=== PATIENT | male | born 1965 | race Caucasian/White ===

== ENCOUNTER 2024-08-26 08:43 | Emergency (ER) | payer BC, SELFPAY ==
[2024-08-26 08:50] VITALS: BP 121/93; PULSE 82; RESP 20; TEMP 36.7; O2SAT 98
--- OUTSIDE RECORDS SUMMARY | 2024-08-26 08:50 | XMS_ITS | Encounter Summary ---
Author Organization [facility] Address [address] [place] [address] Phone Care Team Providers Care Motor Boss Name Role Phone Avinash Otero BS Primary Care Provider [phone] Reason for Visit * Reason Onset Date Comments Clinical SX During Covid-19 Outbreak 03/01/2020 Encounter Details Date Type Department Care Team ([facility] st Contact Info) Description 03/01/2020 Telephone [facility] Pt Support and Access CTR Appointment Request [address] [place] [address] Identified, No Provider Clinical SX During Covid-19 Outbreak Social History Tobacco Use Types Packs/Day Years Used Date Smoking Tobacco: Never Smokeless Tobacco: Never Alcohol Use Standard Drinks/Week Comments Yes 0 (1 standard drink = 0.6 oz pur e alcohol) Sex and Gender Information Value Date Recorded Sex Assigned at Not on file Legal Sex Male 7:16 AM AGRONOMY INSTRUCTOR Gender Identity Male 11/06/2021 9:11 AM CDT Sexual Orientation Straight 11/06/2021 9: 11 AM CDT COVID-19 Exposure Response Date Recorded In the last month, have you been in contact with someone who was confirmed or suspected to have Coronavirus / COVID-19? Unable to assess 03/01/2020 2:06 PM AGRONOMY INSTRUCTOR documented as of this encounter Miscellaneous Notes * Telephone Encounter - Eunice Christine - 03/01/2020 12:56 PM CST Patient called to request COVID testing. COVID Related Symptoms: sore throat, runny nose Confirmed Exposure: yes If yes, date of exposure: 02/24/2020 and patient advised to wait at least 5 days from exposure datefor testing. Pt screened through [facility] COVID guidelines and directed to report to testing site. Patient aware thaton-site clinical staff may pre-screen. NOMY INSTRUCTOR documented in this encounter Plan of Treatment Not on file documented as of this encounter Visit Diagnoses Not on filedocumented in this encounter Additional Health Concerns Infection Onset Date Last Indicated Resolved Time Suspected COVID-03/01/2020 03/01/2020 0 12:21 AM AGRONOMY INSTRUCTOR Assessment Noted Time A Hypertension Plan of Care has been documented for the patient 01/27/2020 10:54 AM CDT documented as of this encounter Care Teams Motor Boss Relationship Specialty Start Date End Date Avinash Otero MB BS [address] [place] [address] PCP - General Adult Medicine 09/29/23 documented as of this encounter
--- OUTSIDE RECORDS SUMMARY | 2024-08-26 08:51 | XMS_ITS | Encounter Summary ---
Author Organization [facility] Address [address] [place] [address] Phone Care Team Providers Care Facility Manager Histology Name Role Phone Avinash Otero Primary Care Provider [phone] Encounter Details Date Type Department Care Team (Late st Contact Info) Description 06/14/2016 Telephone Adult Medicine [place] [address] [place], [place] [id number] Madelyn Howell MD Social History Tobacco Use Types Packs/Day Years Used Date Smoking Tobacco: Never Smokeless Tobacco: Never Alcohol Use Standard Drinks/Week Comments Yes 0 (1 standard drink = 0.6 oz pur e alcohol) Sex and Gender Information Value Date Recorded Sex Assigned at Not on file Legal Sex Male 7:16 AM DIABETES EDUCATION COORDINATOR Gender Identity Male 11/06/2021 9:11 AM CDT Sexual Orientation Straight 11/06/2021 9: 11 AM CDT documented as of this encounter Plan of Treatment Not on file documented as of this encounter Visit Diagnoses Not on filedocumented in this encounter Additional Health Concerns Infection Onset Date Last Indicated Resolved Time Suspected COVID-19 03/01/2020 03/01/2020 0 12:21 AM DIABETES EDUCATION COORDINATOR Assessment Noted Time A Hypertension Plan of Care has been documented for the patient 05/11/2015 3:48 PM DIABETES EDUCATION COORDINATOR documented as of this encounter Care Teams Facility Manager Histology Relationship Specialty Start Date End Date Avinash Otero MB BS [address] [place], [place] [address] PCP - General Adult Medicine 09/29/23 documented as of this encounter
--- OUTSIDE RECORDS SUMMARY | 2024-08-26 08:51 | XMS_ITS | Encounter Summary ---
Author Organization [facility] Address [address] [place] [address] Phone Care Team Providers Care Hand Stonecutter Name Role Phone Avinash Otero Primary Care Provider [phone] Encounter Details Date Type Department Care Team (Late st Contact Info) Description 10/25/2022 Transcribe Orders [facility] Pulmonology [address] [address] Arnold Lopez MD [address] [place] [address] Sleep apnea, unspecified type (Primary Dx) Social History Tobacco Use Types Packs/Day Years Used Date Smoking Tobacco: Never Smokeless Tobacco: Never Alcohol Use Standard Drinks/Week Comments Yes 0 (1 standard drink = 0.6 oz pur e alcohol) Sex and Gender Information Value Date Recorded Sex Assigned at Not on file Legal Sex Male 7:16 AM COMPANY MINER BLASTING Gender Identity Male 11/06/2021 9:11 AM CDT Sexual Orientation Straight 11/06/2021 9: 11 AM CDT documented as of this encounter Plan of Treatment Not on file documented as of this encounter Visit Diagnoses Diagnosis Sleep apnea, unspecified type- Primary documented in this encounter Additional Health Concerns Assessment Noted Time A Hypertension Plan of Care has been documented for the patient 12/23/2021 9:34 AM CDT documented as of this encounter Care Teams Hand Stonecutter Relationship Specialty Start Date End Date Avinash Otero MB BS [address] [place] [address] PCP - General Adult Medicine 09/29/23 documented as of this encounter
--- OUTSIDE RECORDS SUMMARY | 2024-08-26 08:51 | XMS_ITS | Encounter Summary ---
Author Organization [facility] Address [address] [place] [address] Phone Care Team Providers Care Vice President Underwriting Name Role Phone Avinash Otero Primary Care Provider [phone] Reason for Visit * Reason Onset Date Comments !Other 01/14/2011 pt calling to ge t lab results Encounter Details Date Type Department Care Team ([facility] Contact Info) Description 01/14/2011 Telephone Adult Medicine [place] [address] [place] [address] Sofia Sanchez MD [address] [place] [address] !Other (pt calling to get lab results ) Social History Tobacco Use Types Packs/Day Years Used Date Smoking Tobacco: Never Smokeless Tobacco: Never Alcohol Use Standard Drinks/Week Comments Yes 0 (1 standard drink = 0.6 oz pur e alcohol) Sex and Gender Information Value Date Recorded Sex Assigned at Not on file Legal Sex Male 7:16 AM PRODUCTION COST ESTIMATOR Gender Identity Male 11/06/2021 9:11 AM CDT Sexual Orientation Straight 11/06/2021 9: 11 AM CDT documented as of this encounter Miscellaneous Notes * Telephone Encounter - Ariadna Adams RN - 01/17/2011 2:15 PM CDT Phoned pt to inform him of normal lab results per Dr Naik message from 01/16/11. Pt requested copy of lab work from 01/11/11, mailed to pt. Pt voices no other questions/concerns at this time. * Telephone Encounter - Willis Naik MD - 01/16/2011 3:59 PM CDT I have reviewed all the labs that's we ordered on 01/11. All the labs including his blood counts, lipids, Liver and kidney functions and iron studies are all with in normal limits. Patient may be given a copy of his lab results if he needs or asks for them. * Telephone Encounter - Ariadna Adams RN - 01/14/2011 3:32 PM CDT Patient calling in for results of 01/11/11 lab results. Forwarding message to Dr Naik to review 01/11/11 lab work so that Res Cl RN can return call to patient with results. Thanks. documented in this encounter Plan of Treatment Not on file documented as of this encounter Visit Diagnoses Not on filedocumented in this encounter Additional Health Concerns Infection Onset Date Last Indicated Resolved Time Suspected COVID-19 03/01/2020 03/01/2020 0 12:21 AM PRODUCTION COST ESTIMATOR documented as of this encounter Care Teams Vice President Underwriting Relationship Specialty Start Date End Date Avinash Otreo MB BS [address] [place] [address] PCP - General Adult Medicine 09/29/23 documented as of this encounter
--- OUTSIDE RECORDS SUMMARY | 2024-08-26 08:51 | XMS_ITS | Encounter Summary ---
Author Organization [facility] Address [address] [place] [address] Phone Care Team Providers Care Ring Attacher Name Role Phone Avinash Otero BS Primary Care Provider [phone] Reason for Visit * Reason Onset Date Comments Results 05/13/2024 Encounter Details Date Type Department Care Team ([facility] st Contact Info) Description 05/13/2024 Telephone [facility] Pulmonology Main [address] [place] [id number] Arnold Lopez MD [address] [place] [address] Results Social History Tobacco Use Types Packs/Day Years Used Date Smoking Tobacco: Never Smokeless Tobacco: Never Alcohol Use Standard Drinks/Week Comments Yes 0 (1 standard drink = 0.6 oz pur e alcohol) Sex and Gender Information Value Date Recorded Sex Assigned at Not on file Legal Sex Male 7:16 AM DEEP SUBMERGENCE VEHICLE OPERATOR Gender Identity Male 11/06/2021 9:11 AM CDT Sexual Orientation Straight 11/06/2021 9: 11 AM CDT documented as of this encounter Miscellaneous Notes * Telephone Encounter - Cira Florence RN - 05/13/2024 1:46 PM CST ----- Message from Arnold Lopez sent at 05/13/2024 1:41 PM DEEP SUBMERGENCE VEHICLE OPERATOR ----- No suspicious lung nodules seen. SUBMERGENCE VEHICLE OPERATOR documented in this encounter Plan of Treatment Not on file documented as of this encounter Visit Diagnoses Not on filedocumented in this encounter Additional Health Concerns Assessment Noted Time A Hypertension Plan of Care has been documented for the patient 12/23/2021 9:34 AM CDT documented as of this encounter Care Teams Ring Attacher Relationship Specialty Start Date End Date Avinash Otero MB BS [address] [place] [address] PCP - General Adult Medicine 09/29/23 documented as of this encounter
--- OUTSIDE RECORDS SUMMARY | 2024-08-26 08:51 | XMS_ITS | Encounter Summary ---
Author Organization [employer] [facility] Address [address] [place] [address] Phone Care Team Providers Care Patient Service Representative Name Role Phone Avinash Otero Primary Care Provider [phone] Encounter Details Date Type Department Care Team (Late st Contact Info) Description 02/21/2011 Patient Related Communication Adult Medicine on [place] [address] [place], [place] [id number] Darren Hogan MD Social History Tobacco Use Types Packs/Day Years Used Date Smoking Tobacco: Never Smokeless Tobacco: Never Alcohol Use Standard Drinks/Week Comments Yes 0 (1 standard drink = 0.6 oz pur e alcohol) Sex and Gender Information Value Date Recorded Sex Assigned at Not on file Legal Sex Male 7:16 AM SENIOR TELECOMMUNICATIONS ENGINEER Gender Identity Male 11/06/2021 9:11 AM CDT Sexual Orientation Straight 11/06/2021 9: 11 AM CDT documented as of this encounter Plan of Treatment Not on file documented as of this encounter Visit Diagnoses Not on filedocumented in this encounter Additional Health Concerns Infection Onset Date Last Indicated Resolved Time Suspected COVID-19 03/01/2020 03/01/2020 0 12:21 AM SENIOR TELECOMMUNICATIONS ENGINEER documented as of this encounter Care Teams Patient Service Representative Relationship Specialty Start Date End Date Avinash Otero MB BS [address] [place], [place] [address] PCP - General Adult Medicine 09/29/23 documented as of this encounter
--- OUTSIDE RECORDS SUMMARY | 2024-08-26 08:51 | XMS_ITS | Encounter Summary ---
Author Organization [facility] Address [address] [place] [address] Phone Care Team Providers Care Shelter Advocate Name Role Phone Avinash Otero BS Primary Care Provider [phone] Reason for Visit * Reason Onset Date Comments Appointment Request 04/04/2019 Encounter Details Date Type Department Care Team ([facility] Contact Info) Description 04/04/2019 Telephone Ophthalmology [facility] [address] [place] [address] Surya Rosales MD [address] [place], [place] [id number] Appointment Request Social History Tobacco Use Types Packs/Day Years Used Date Smoking Tobacco: Never Smokeless Tobacco: Never Alcohol Use Standard Drinks/Week Comments Yes 0 (1 standard drink = 0.6 oz pur e alcohol) Sex and Gender Information Value Date Recorded Sex Assigned at Not on file Legal Sex Male 7:16 AM ROLL CAPPER Gender Identity Male 11/06/2021 9:11 AM CDT Sexual Orientation Straight 11/06/2021 9: 11 AM CDT documented as of this encounter Miscellaneous Notes * Telephone Encounter - Erica Christopher RN - 04/04/2019 10:58 AM CST Schedule next available, ok to use one day post op CAPPER * Telephone Encounter - Paola Shields - 04/04/2019 10:35 AM CST Return for BOV in 3-4 weeks. Please advise where to fit patient in on schedule. No times available for 3 to 4 weeks. CAPPER documented in this encounter Plan of Treatment Not on file documented as of this encounter Visit Diagnoses Not on filedocumented in this encounter Additional Health Concerns Infection Onset Date Last Indicated Resolved Time Suspected COVID-19 03/01/2020 03/01/2020 0 12:21 AM ROLL CAPPER Assessment Noted Time A Hypertension Plan of Care has been documented for the patient 01/08/2019 3:17 PM CDT documented as of this encounter Care Teams Shelter Advocate Relationship Specialty Start Date End Date Avinash Otero MB BS [address] [place] [address] PCP - General Adult Medicine 09/29/23 documented as of this encounter
--- OUTSIDE RECORDS SUMMARY | 2024-08-26 08:51 | XMS_ITS | Encounter Summary ---
Author Organization [facility] Address [address] [place] [address] Phone Care Team Providers Care Shopper'S Aide Name Role Phone Avinash Otero Primary Care Provider [phone] Encounter Details Date Type Department Care Team (Late st Contact Info) Description 02/23/2011 Telephone Adult Medicine [place] [address] [place] [address] Sofia Sanchez MD [address] [place] [address] Social History Tobacco Use Types Packs/Day Years Used Date Smoking Tobacco: Never Smokeless Tobacco: Never Alcohol Use Standard Drinks/Week Comments Yes 0 (1 standard drink = 0.6 oz pur e alcohol) Sex and Gender Information Value Date Recorded Sex Assigned at Not on file Legal Sex Male 7:16 AM REPORTING MANAGER Gender Identity Male 11/06/2021 9:11 AM CDT Sexual Orientation Straight 11/06/2021 9: 11 AM CDT documented as of this encounter Miscellaneous Notes * Telephone Encounter - Veronica Alejandro RN - 03/02/2011 10:28 AM CST Called pt - informed of the below recommendation - pt states he is aware that it is recommended to get a flu vaccine, but he has not gotten one in the past and does not intend to get one this year. To Dr Daniel JOHANSEN. RTING MANAGER * Telephone Encounter - Tory Aponte RN - 02/23/2011 2:48 PM CST Left message for pt to return call to our office. RTING MANAGER * Telephone Encounter - Sofia Sanchez MD - 02/23/2011 10:43 AM CST Please call pt regarding office visit done on 02/21. He left office a little early before I staffedwith Dr Hogan. The only thing I wanted to add that day was his flu shot, did he got for the season? SB RTING MANAGER documented in this encounter Plan of Treatment Not on file documented as of this encounter Visit Diagnoses Not on filedocumented in this encounter Additional Health Concerns Infection Onset Date Last Indicated Resolved Time Suspected COVID-19 03/01/2020 03/01/2020 0 12:21 AM REPORTING MANAGER documented as of this encounter Care Teams Shopper'S Aide Relationship Specialty Start Date End Date Avinash Otero MB BS [address] [place] [address] PCP - General Adult Medicine 09/29/23 documented as of this encounter
--- OUTSIDE RECORDS SUMMARY | 2024-08-26 08:51 | XMS_ITS | Encounter Summary ---
Author Organization [facility] Address [address] [place] [address] Phone Care Team Providers Care Lab Clerk Name Role Phone Avinash Otero BS Primary Care Provider [phone] Reason for Visit * Reason Onset Date Comments Appointment Request 09/17/2012 pt requestin g sooner appt (sched for 09/24) Encounter Details Date Type Department Care Team ([facility] st Contact Info) Description 09/17/2012 Telephone Hand Surgery on [facility] [address] [place], [place] [id number] Art Padilla MD [address] [place], [place] [id number] Appointment Request (pt requesting sooner appt (sched for 09/24)) Social History Tobacco Use Types Packs/Day Years Used Date Smoking Tobacco: Never Smokeless Tobacco: Never Alcohol Use Standard Drinks/Week Comments Yes 0 (1 standard drink = 0.6 oz pur e alcohol) Sex and Gender Information Value Date Recorded Sex Assigned at Not on file Legal Sex Male 7:16 AM TATTOO IDENTIFIER Gender Identity Male 11/06/2021 9:11 AM CDT Sexual Orientation Straight 11/06/2021 9: 11 AM CDT documented as of this encounter Miscellaneous Notes * Telephone Encounter - Lima Flores - 09/17/2012 1:02 PM CDT Liz Winters calling from Dr. Otero's office regarding patient's request to be seen sooner than 09/24/[address] Art Padilla. Please contact patient directly to schedule at [phone]. documented in this encounter Plan of Treatment Not on file documented as of this encounter Visit Diagnoses Not on filedocumented in this encounter Additional Health Concerns Infection Onset Date Last Indicated Resolved Time Suspected COVID-19 03/01/2020 03/01/2020 0 12:21 AM TATTOO IDENTIFIER documented as of this encounter Care Teams Lab Clerk Relationship Specialty Start Date End Date Avinash Otero MB BS [address] [place] [address] PCP - General Adult Medicine 09/29/23 documented as of this encounter
--- OUTSIDE RECORDS SUMMARY | 2024-08-26 08:51 | XMS_ITS | Encounter Summary ---
Author Organization [facility] Address [address] [place] [address] Phone Care Team Providers Care Oil Rig Roughneck Name Role Phone Avinash Otero BS Primary Care Provider [phone] Reason for Visit * Reason Onset Date Comments Appointment Request 04/16/2012 Encounter Details Date Type Department Care Team ([facility] st Contact Info) Description 04/16/2012 Telephone [facility] 2nd Floor Cardiology [address] [place] [address] Wyatt Monge MD Appointment Request Social History Tobacco Use Types Packs/Day Years Used Date Smoking Tobacco: Never Smokeless Tobacco: Never Alcohol Use Standard Drinks/Week Comments Yes 0 (1 standard drink = 0.6 oz pur e alcohol) Sex and Gender Information Value Date Recorded Sex Assigned at Not on file Legal Sex Male 7:16 AM RESEARCH DIRECTOR Gender Identity Male 11/06/2021 9:11 AM CDT Sexual Orientation Straight 11/06/2021 9: 11 AM CDT documented as of this encounter Miscellaneous Notes * Telephone Encounter - Lianna Martines - 04/17/2012 9:42 AM CST Pt called back and states he will be following up with another provider. Does not need appointment at this time. ARCH DIRECTOR * Telephone Encounter - Jennifer Ramirez - 04/17/2012 8:43 AM CST Pt called back to confirm he was in his car and will have to call back. If he needs to change the appointment look for a RH in that time frame. ARCH DIRECTOR * Telephone Encounter - Jennifer Ramirez - 04/17/2012 8:05 AM CST Left msg to call and confirm appointment in hyperspace. ARCH DIRECTOR * Telephone Encounter - Cammy Parsons - 04/16/2012 3:35 PM CST Type of appointment Hospital follow up What is the patient's discharge diagnosis? chest pain, atrial fib Full name of provider to make appointment with: cardiology at [facility] - Dr. Ramos Note: Include first and last names When does appointment need to be? 1 to 2 weeks Please advise ARCH DIRECTOR documented in this encounter Plan of Treatment Not on file documented as of this encounter Visit Diagnoses Not on filedocumented in this encounter Additional Health Concerns Infection Onset Date Last Indicated Resolved Time Suspected COVID-19 03/01/2020 03/01/2020 0 12:21 AM RESEARCH DIRECTOR documented as of this encounter Care Teams Oil Rig Roughneck Relationship Specialty Start Date End Date Avinash Otero MB BS [address] [place] [address] PCP - General Adult Medicine 09/29/23 documented as of this encounter
--- OUTSIDE RECORDS SUMMARY | 2024-08-26 08:51 | XMS_ITS | Encounter Summary ---
Author Organization [facility] Address [address] [place] [id number] Phone Care Team Providers Care Whitewater Rafting Guide Name Role Phone Avinash Otero Primary Care Provider [phone] Reason for Visit * Reason Onset Date Comments Wrist Trauma 10/05/2015 ED/ [place], Right wrist injury after fall backwards while wearing a paragliding backpack, 10/02/15 Encounter Details Date Type Department Care Team (Latest Contact Info) Description 10/05/2015 Patient Related Communication Hand Surgery on [address] [place], [place] [id number] Identified, No Provider Wrist Trauma (ED/ [place], Right wrist injury after fall backwards while wearing a paragliding backpack, 10/02/15) Social History Tobacco Use Types Packs/Day Years Used Date Smoking Tobacco: Never Smokeless Tobacco: Never Alcohol Use Standard Drinks/Week Comments Yes 0 (1 standard drink = 0.6 oz pur e alcohol) Sex and Gender Information Value Date Recorded Sex Assigned at Not on file 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 Informed patient that our providers recommend that with his level of activity and age, surgery would most likely be indicated. This would be determined after examination and discussion with the provider. Explained that our providers like to repair these types of injuries within two weeks of the fracture. Patient verbalized understanding. Patient asked if he returns 16 days post injury if this will have a big difference. Explained thatthe longer he waits to be examined the higher the risk of not-optimal outcomes. Patient verbalized understanding. Patient states that he is going to an orthopedic surgeon in [place] for a second opinion, and would like the [facility] provider to speak to our providers here in the office. Explained that our providers have very busy clinic schedules today, so their access is very limited. Patient verbalized understanding. Patient asked that if the doctor in [place] recommends surgery, can the patient call the office and schedule surgery without being seen in the office. Explained that the patient would need to have an appointment with a provider before surgery can be scheduled. Patient also asked if his appointmentand surgery could be on the same day. Informed patient that his surgery would most likely be the same week as his appointment, but surgeries are not usually scheduled on the same day as appointments unless they are emergencies. Explained that since his injury is a few days old, his surgery is not considered an emergency. Patient verbalized understanding. Patient will call the office back after his second opinion with the orthopedist in [facility] if he wishes to have an appointment scheduled. * Marika Coffey RN - 10/05/2015 2:22 PM CDT Attempted to contact patient. [facility] for patient to return call to office. Caller and office identified. Call back number provided. Review below information with MACIEL Mabry. Unfortunately, without examination in the need for surgery cannot be determined at this time. Ideally, our surgeons like to repair fractures within 2 weeksof the injury. The patient should be advised to return from [facility] before October 18 if he wishes to proceed with surgery. The need for surgery will be determined at an appointment with the patient. Surgery would most likely be recommended due to patient's age and activity level. It is ultimately thepatient's decision whether or not he returns to have surgery. * Marika Coffey RN - 10/05/2015 10:24 AM CDT Returned call to patient to give provider's recommendation below. Patient states that he is passed the window of leaving [facility] tonight, and he would like to know if it is truly necessary that he leave [facility] to be seen this week. Patient would like to know if his surgery will be performed this week,and if not is it truly necessary to be seen this week. If the surgery will not be until next week, the patient would like to wait until next week to be seen. Patient also questions what the implications would be if he waited to come in for an appointment until the end of his trip. Patient is set toreturn from [facility] on October 17. Patient also stated that he would like his information review with the surgeon who would be performing the surgery. Informed patient that the provider who reviewed his information works very closely with the surgeon in surgery and in the clinic. Explained to patient that ultimately it is up to him, when he returns from [facility] to be seen. Patient verbalized understanding but would like this information reviewed with the providers, and be called back. Informed patient that this information will be review with the provider this afternoon. Patient verbalized understanding. Patient's phone number is [phone]. 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
--- OUTSIDE RECORDS SUMMARY | 2024-08-26 08:51 | XMS_ITS | Encounter Summary ---
Author Organization [facility] Address [address] [place] [address] Phone Care Team Providers Care Line Service Person Name Role Phone Avinash Otero BS Primary Care Provider [phone] Reason for Visit * Reason Onset Date Comments Results 08/28/2014 Encounter Details Date Type Department Care Team ([facility] st Contact Info) Description 08/28/2014 Telephone Family Medicine on [address] [place] [address] Cleveland Joseph MD [address] [place] [address] Results Social History Tobacco Use Types Packs/Day Years Used Date Smoking Tobacco: Never Smokeless Tobacco: Never Alcohol Use Standard Drinks/Week Comments Yes 0 (1 standard drink = 0.6 oz pur e alcohol) Sex and Gender Information Value Date Recorded Sex Assigned at Not on file 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 Given results and verbalized understanding. Will follow up with primary physician. * Telephone Encounter - Lisa Byers RN - 08/28/2014 7:55 PM CDT Left message for patient to return call. * Telephone Encounter - Shelbi Tavares RN - 08/28/2014 3:28 PM CDT ----- Message from Cleveland Magaña MD sent at 08/28/2014 2:07 PM CDT ----- Labs c/w flare of gout. rec pt f/u w/pcp for mx options. 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
--- OUTSIDE RECORDS SUMMARY | 2024-08-26 08:51 | XMS_ITS | Encounter Summary ---
Author Organization [facility] Address [address] [place] [address] Phone Care Team Providers Care Striker Out Name Role Phone Avinash Otero Primary Care Provider [phone] Encounter Details Date Type Department Care Team (Late st Contact Info) Description 09/25/2023 Scanned Document Non [facility] Referring Docs Provider, Outside Social History Tobacco Use Types Packs/Day Years Used Date Smoking Tobacco: Never Smokeless Tobacco: Never Alcohol Use Standard Drinks/Week Comments Yes 0 (1 standard drink = 0.6 oz pur e alcohol) Sex and Gender Information Value Date Recorded Sex Assigned at Not on file 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
--- OUTSIDE RECORDS SUMMARY | 2024-08-26 08:51 | XMS_ITS | Encounter Summary ---
Author Organization [facility] Address [address] [place] [address] Phone Care Team Providers Care Job Foreman Name Role Phone Avinash Otero BS Primary Care Provider [phone] Reason for Visit * Reason Onset Date Comments !Other 10/17/2017 Going to ED Encounter Details Date Type Department Care Team (Late st Contact Info) Description 10/17/2017 Telephone [facility] Cardiology [address] [place] [address] Sharad Garcia MD [address] [place], [place] [address] !Other (Going to ED) Social History Tobacco Use Types Packs/Day Years Used Date Smoking Tobacco: Never Smokeless Tobacco: Never Alcohol Use Standard Drinks/Week Comments Yes 0 (1 standard drink = 0.6 oz pur e alcohol) Sex and Gender Information Value Date Recorded Sex Assigned at Not on file 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 documented in this encounter Plan of Treatment Not on file documented as of this encounter Visit Diagnoses Not on filedocumented in this encounter Additional Health Concerns Infection Onset Date Last Indicated Resolved Time Suspected COVID-19 03/01/2020 03/01/2020 0 12:21 AM NUCLEAR CONTROL OPERATOR Assessment Noted Time A Hypertension Plan of Care has been documented for the patient 06/07/2017 1:36 PM NUCLEAR CONTROL OPERATOR documented as of this encounter Care Teams Job Foreman Relationship Specialty Start Date End Date Avinash Otero MB BS [address] [place] [address] PCP - General Adult Medicine 09/29/23 documented as of this encounter
--- OUTSIDE RECORDS SUMMARY | 2024-08-26 08:51 | XMS_ITS | Encounter Summary ---
Author Organization [facility] Address [address] [place] [address] Phone Care Team Providers Care Manager Switch Name Role Phone Avinash Otero Primary Care Provider [phone] Encounter Details Date Type Department Care Team (Latest Contact Info) Description 03/15/2013 Transcribe Orders [facility] Cardiology [address] [place] [address] Wyatt Monge MD Atrial fibrillation (Primary Dx) Social History Tobacco Use Types Packs/Day Years Used Date Smoking Tobacco: Never Smokeless Tobacco: Never Alcohol Use Standard Drinks/Week Comments Yes 0 (1 standard drink = 0.6 oz pur e alcohol) Sex and Gender Information Value Date Recorded Sex Assigned at Not on file 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 Gender Identity Male 11/06/2021 9:11 AM CDT Sexual Orientation Straight 11/06/2021 9: 11 AM CDT documented as of this encounter Plan of Treatment Not on file documented as of this encounter Visit Diagnoses Diagnosis Atrial fibrillation ([facility])- Primary Atrial fibrillation documented in this encounter Additional Health Concerns Infection Onset Date Last Indicated Resolved Time Suspected COVID-19 03/01/2020 03/01/2020 0 12:21 AM DOUBLE END TENONER SETTER documented as of this encounter Care Teams Manager Switch Relationship Specialty Start Date End Date Avinash Otero MB BS [address] [place], [place] [id number] PCP - General Adult Medicine 09/29/23 documented as of this encounter
--- OUTSIDE RECORDS SUMMARY | 2024-08-26 08:51 | XMS_ITS | Encounter Summary ---
Author Organization [facility] Address [address] [place] [address] Phone Care Team Providers Care Carbon Paste Mixer Operator Name Role Phone Avinash Otero Primary Care Provider [phone] Encounter Details Date Type Department Care Team (Late st Contact Info) Description 02/03/2016 Orders Only Adult Medicine [facility] [address] [place], [place] [address] Branden Espinal MD Social History Tobacco Use Types Packs/Day Years Used Date Smoking Tobacco: Never Smokeless Tobacco: Never Alcohol Use Standard Drinks/Week Comments Yes 0 (1 standard drink = 0.6 oz pur e alcohol) Sex and Gender Information Value Date Recorded Sex Assigned at Not on file Legal 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 Gender Identity Male 11/06/2021 9:11 AM CDT Sexual Orientation Straight 11/06/2021 9: 11 AM CDT documented as of this encounter Plan of Treatment Not on file documented as of this encounter Visit Diagnoses Not on filedocumented in this encounter Additional Health Concerns Infection Onset Date Last Indicated Resolved Time Suspected COVID-19 03/01/2020 03/01/2020 0 12:21 AM CHIEF LOCK OPERATOR Assessment Noted Time A Hypertension Plan of Care has been documented for the patient 05/11/2015 3:48 PM CHIEF LOCK OPERATOR documented as of this encounter Care Teams Carbon Paste Mixer Operator Relationship Specialty Start Date End Date Avinash Otero MB BS [address] [place], [place] [address] PCP - General Adult Medicine 09/29/23 documented as of this encounter
--- OUTSIDE RECORDS SUMMARY | 2024-08-26 08:51 | XMS_ITS | Clinical Summary ---
Author Organization [facility] Address [address] [place] [phone] Phone Care Team Providers Care Zoogler Name Role Phone Avinash Otero BS Primary Care Provider [phone] Allergies No known active allergies Medications indomethacin 25 mg capsuleIndication s:gout Take 1 capsule (25 mg total) by mouth every day as needed (pain) 30 capsule 2 Active atenoloL (TENORMIN) 25 mg tabletIndications :Paroxysmal atrial fibrillation (CMS-HCC) Take 0.5 tablets (12.5 mg total) by mouth every day 45 tablet 3 2 Active neomycin-polymyxi n-dexamethasone (MAXITROL) ophthalmic ointmentIndicatio ns:Cyst of right upper eyelid Use ointment around right upper eyelid, 2-3 times daily for 1 week 3.5 g 4 Active Active Problems Problem Noted Date Diagnosed Date Cyst of right upper eyelid 02/29/2024 Assessment & Plan (02/29/2024 10:49 AM BABBITT SPINNER): The nature and etiology of the lesion discussed with patient. Will plan for removal in minors today. Risk, benefit and alternatives discussed with patient, including but not limited to pain, infection, bleeding, scarring, need for repeat surgery, damage to vision, etc. Pt understands and would like excision. Please see procedure note for further details. JIAN (obstructive sleep apnea) 05/08/2023 Family history of colon cancer in mother 016 Closed fracture distal radiu s and ulna, right, initial encounter 10/05/2015 Triquetral chip fracture 09/19/2012 Reactive airway disease 06/10/2012 Elevated troponin 04/16/2012 Hypopotassemia 04/16/2012 Permanent atrial fibrillation 01/11/2011 Alcohol abuse 01/11/2011 Resolved Problems Problem Noted Date Diagnosed Date Resolved Date Cyst of right lower eyelid 04/04/2019 1 04/30/2023 Assessment & Plan (05/14/2019 3:38 PM BABBITT SPINNER): Sebaceous cyst of the right lower eyelid s/p excision and well healed now. Pt now with small cyst of the right upper eyelid, not bothered by it. Will monitor for now. -f/u with PRN -routine f/u with optom. Assessment & Plan (04/04/2019 10:09 AM BABBITT SPINNER): The nature and etiology of the sebaceous cyst discussed with patient. Will plan for removal in minors today. Risk, benefit and alternatives discussed with patient, including but not limited to pain, infection, bleeding, scarring, need for repeat surgery, damage to vision, etc. Pt understands and would like excision. Please see procedure note for further details. Encounter for preventive health examination 01/08/2019 08/07/2019 Cellulitis of right lower extremity 09/26/2016 06/07/2017 Precordial pain 04/16/2012 02/03/2016 Encounters Date Type Department Care Team Description 06/13/2024 6:45 AM BABBITT SPINNER Lab Only [facility] [place] [address] [place] [address] Otoniel Nunez MD Permanent atrial fibrillation 06/13/2024 Travel from Last 3 Months Immunizations Immunization Administration Dates Next Due Hepatitis A - Adult 11/03/2014 SARS-CoV-2 (Pfizer Monovalent COVID-19) 06/06/19 21,05/16/2020 T-dap (BOOSTRIX) 08/08/2012 Rmguldm-Phatpa-Dq 11/03/2014 Family History Medical History Relation Name Comments Alcohol/Drug Brother 1 Mat Half Heart Brother 2 Afibdx 40s Cancer Maternal Aunt 1 Late 60s primary bone ?dx? Heart Maternal Aunt 1 Late 60s Afib ? Heart Maternal Cousin 70s permanent Af ibonset 50s Cardiac Maternal Grandfather Late 60s Stroke Maternal Grandmother end of life Aneurysm Maternal Uncle 70s abdominal ? Cancer Mother Colondx late 50 s Stroke Paternal Aunt 90 y/o cause cognitiv e and speech issues Cardiac Paternal Grandfather ? ? Stroke Paternal Grandmother 99 y/o - 98 y/o end of life Cancer Paternal Uncle 1 primary unk nown ?occupation radiation expoxsure dx ? ADD/ADHD Son Diabetes Negative Glaucoma Negative Hypertension Negative Macular Degeneration Negative Retinal Detachment Negative Relation Name Status Comments Brother 1 Mat Half (Age 52) Prescripti on drug overdose Brother 2 Alive Father Alive Maternal Aunt 1 Late 60s Maternal Aunt 2 Alive Cognitive De allred Maternal Cousin 70s Alive Maternal Grandfather Late 60s Maternal Grandmother (Age 99) Maternal Uncle 70s Mother (Age 62) Paternal Aunt 90 y/o Alive Paternal Grandfather ? Paternal Grandmother 99 y/o - 98 y/o Paternal Uncle 1 (Age 75) Paternal Uncle 2 (Age 93) Son Alive Genetic testing Keith Valentina: 02/09/2006 Social History Tobacco Use Types Packs/Day Years Used Date Smoking Tobacco: Never Smokeless Tobacco: Never Tobacco Cessation:Counseling Given: No Alcohol Use Standard Drinks/Week Comments Yes 0 (1 standard drink = 0.6 oz pur e alcohol) Sex and Gender Information Value Date Recorded Sex Assigned at Not on file Legal Sex Male 7:16 AM BABBITT SPINNER Gender Identity Male 11/06/2021 9:11 AM CDT Sexual Orientation Straight 11/06/2021 9: 11 AM CDT Last Filed Vital Signs Vital Sign Reading Time Taken Comments Blood Pressure 103/65 03/28/2024 3:20 PM BABBITT SPINNER Pulse 100 03/28/2024 2:26 PM BABBITT SPINNER Temperature 36.7 C (98 F) 03/28/2024 1:38 PM BABBITT SPINNER Respiratory Rate 17 03/28/2024 3:20 PM BABBITT SPINNER Oxygen Saturation 92% 03/28/2024 3:20 PM BABBITT SPINNER Inhaled Oxygen Concentration - - Weight 80.7 kg (178 lb) 03/28/2024 1:40 PM BABBITT SPINNER Height 175.3 cm (5' 9 ) 03/28/2024 1:40 PM BABBITT SPINNER Body Mass Index 26.29 03/28/2024 1:40 PM BABBITT SPINNER Plan of Treatment Health Maintenance Due Date Last Done Comments MMR Vaccines (1 of 1 - Standard series) 1966 Hepatitis B Vaccines (1 of 3 - 19+ 3-dose series) 1985 Hepatitis A Vaccines (2 of 2 - Risk 2-dose series) 05/06/2015 11/03/2014 HCPOA Document on File 2016 Pneumococcal Vaccines (50+) (1 of 1 - PCV) 2016 Zoster (Shingles) Vaccine (1 of 2) 2016 Prostate Cancer Screening (PSA) 2021 Lipid Panel 06/14/2021 06/14/2016, 01/11/2011 DTaP/Tdap/Td Vaccines (2 - Td or Tdap) 08/08/2022 08/08/2012 Screening for Diabetes 10/22/2023 , 10/20/2020, 12/27/2017, Additional history exists COVID-19 Vaccine ( season) 2023 06/06/2020, 05/16/2020 Depression Screening 05/08/2024 05/08/2023, 10/13/2022, 11/06/2021, Additional history exists Influenza Vaccine (Season Ended) 2024 Diagnostic Colonoscopy 03/28/2027 , 03/28/2024, 10/26/2016, Additional history exists HIB Vaccines Aged Out No longer eligi ble based on patient's age to complete this topic HPV Vaccines Aged Out No longer eligi ble based on patient's age to complete this topic IPV Vaccines Aged Out No longer eligi ble based on patient's age to complete this topic Meningococcal B Vaccine Aged Out No l onger eligible based on patient's age to complete this topic Meningococcal Vaccine (ACWY) Aged Out No longer eligible based on patient's age to complete this topic Rotavirus Vaccines Aged Out No longer eligible based on patient's age to complete this topic Procedures Procedure Name Priority Date/Time Associated Diagnosis Comments MISCELLANEOUS GENETICS TEST-1 Routine 06/13/2024 6:51 AM BABBITT SPINNER Permanent atrial fibrillation COLONOSCOPY 03/28/2024 2:21 PM BABBITT SPINNER COMPREHENSIVE METABOLIC PANEL Routine 10/21/2020 2:15 PM CDT Screen for STD (sexually transmitted disease) LIPID PANEL Routine 06/14/2016 11:20 AM BABBITT SPINNER General medical examination from Last 3 Months or Most Recently Relevant to Health Maintenance Results * MISCELLANEOUS GENETICS TEST-1 (06/13/2024 6:51 AM BABBITT SPINNER) MISC. REFERRED TEST-1 see below [facility] Comment: When test is complete, results will be available via reference lab portal. 06/13/2024 6:51 AM BABBITT SPINNER 06/13/2024 9:41 AM BABBITT SPINNER Narrative [facility] - 06/13/2024 4:06 PM BABBITT SPINNER Combined arrhythmia and cardiomyopathy panel us Alida Hua MD REFERENCE BLOOD Final R esult Performing Organization Address City/State/[facility] Co de Phone Number [facility] [address] [place] [address], * COLONOSCOPY (03/28/2024 2:21 PM BABBITT SPINNER) REPORT COMPONENT Attending MD: Otoniel Allred MD, [id number] Procedure: Colonoscopy [facility] REPORT COMPONENT Findings: The perianal and digital rectal examinations were normal. Pertinent negatives include no palpable rectal lesions. Two sessile polyps were found in the transverse colon. The polyps were 2 to 3 mm in size. These polyps were removed with a jumbo cold forceps. Resection and retrieval were complete. A 9 mm polyp was found in the transverse colon. The polyp was pedunculated. The polyp was removed with a cold snare. Resection and retrieval were complete. Many medium-mouthed and small-mouthed diverticula were found in the entire colon. Two sessile polyps were found in the rectum. The polyps were 1 to 2 mm in size. These polyps were removed with a jumbo cold forceps. Resection and retrieval were complete. The exam was otherwise without abnormality on direct and retroflexion views. [facility] REPORT COMPONENT Recommendation: - The patient is in stable condition. Observe the patient post-procedure until all discharge criteria are met, then discharge patient to home with an escort. - Patient has a contact number available for emergencies. The signs and symptoms of potential delayed complications were discussed with the patient. Return to normal activities tomorrow. Written discharge instructions were provided to the patient. - Resume previous diet. - Medication reconciliation was performed, and a list of the patient's discharge medications was provided to the patient. - Continue present medications. - Await pathology results. - Repeat colonoscopy is recommended. The colonoscopy date will be determined after pathology results from today's exam become available for review. - Biopsy results will normally be available in 10-14 days online on [facility]. [facility] Anatomical Region Laterality Modality Other 03/28/2024 2:21 PM BABBITT SPINNER Impressions 03/28/2024 2:52 PM BABBITT SPINNER Impression: - Two 2 to 3 mm polyps in the transverse colon, removed with a jumbo cold forceps. Resected and retrieved. - One 9 mm polyp in the transverse colon, removed with a cold snare. Resected and retrieved. - Diverticulosis in the entire examined colon. - Two 1 to 2 mm polyps in the rectum, removed with a jumbo cold forceps. Resected and retrieved. - The examination was otherwise normal on direct and retroflexion views. Narrative 03/28/2024 2:52 PM BABBITT SPINNER [facility] Patient Name: Dany Ordonez Procedure Date: 03/28/2024 2:21 PM Gender: Male Date of : 1965 Indications: Screening in patient at increased risk: Family history of 1st-degree relative with colorectal cancer before age 60 years Medicines: Fentanyl 100 micrograms IV, Midazolam 9 mg IV, Sedation Administered by the Nurse, The level of sedation administered was moderate Estimated Blood Loss: Estimated blood loss: none. Complications: No immediate complications. No blood products administered. Implants or grafts: None permanent Procedure: Pre-Anesthesia Assessment: - Prior to the procedure, a History and Physical was performed, and patient medications and allergies were reviewed. The patient's tolerance of previous anesthesia was also reviewed. The risks and benefits of the procedure and the sedation options and risks were discussed with the patient. All questions were answered, and informed consent was obtained. Prior Anticoagulants: The patient has taken no anticoagulant or antiplatelet agents except for aspirin. ASA Grade Assessment: II - A patient with mild systemic disease. After reviewing the risks and benefits, the patient was deemed in satisfactory condition to undergo the procedure. After I obtained informed consent, the scope was passed under direct vision. Throughout the procedure, the patient's blood pressure, pulse, and oxygen saturations were monitored continuously. The Colonoscope was introduced through the anus and advanced to the cecum, identified by appendiceal orifice and ileocecal valve. The colonoscopy was performed without difficulty. The patient tolerated the procedure well. The quality of the bowel preparation was evaluated using the BBPS ([place] Bowel Preparation Scale) with scores of: Right Colon = 3 (entire mucosa seen well with no residual staining, small fragments of stool or opaque liquid), Transverse Colon = 3 (entire mucosa seen well with no residual staining, small fragments of stool or opaque liquid) and Left Colon = 3 (entire mucosa seen well with no residual staining, small fragments of stool or opaque liquid). The total BBPS score equals 9. The quality of the bowel preparation was excellent. The ileocecal valve, appendiceal orifice, and rectum were photographed. Providers: Otoniel Allred MD Procedure Code(s): --- Technical --- 05790, Colonoscopy, flexible; with removal of tumor(s), polyp(s), or other lesion(s) by snare technique 70637, 59, Colonoscopy, flexible; with biopsy, single or multiple Diagnosis Code(s): --- Technical --- Z80.0, Family history of malignant neoplasm of digestive organs D12.3, Benign neoplasm of transverse colon (hepatic flexure or splenic flexure) D12.8, Benign neoplasm of rectum K57.30, Diverticulosis of large intestine without perforation or abscess without bleeding CPT copyright 2021 [employer]. All rights reserved. The codes documented in this report are preliminary and upon system admin review may be revised to meet current compliance requirements. Attending Participation: I personally performed the entire procedure. I was present with the patient for the duration of the procedure, and supervised endoscopy staff. For moderate sedation cases, see RN flow sheet. For anesthesia sedated cases see anesthesia flow sheet. Otoniel Allred MD 03/28/2024 2:52:32 PM Electronically signed and Authenticated by Otoniel Allred MD Number of Addenda: 0 Note Initiated On: 03/28/2024 2:21 PM Procedure Date: 03/28/2024 2:21:32 PM Scope Withdrawal Time 0 hours 8 minutes 48 seconds Total Procedure Duration Time 0 hours 13 minutes 40 seconds Scope In: 2:32:47 PM Scope Out: 2:46:27 PM us Otoniel Allred MD GI PROCEDURES Final Result * (ABNORMAL) COMPREHENSIVE METABOLIC PANEL (10/21/2020 2:15 PM CDT) CALCIUM 8.9 8.8 - 10.0 mg/dL [facility] GLUCOSE 130(H) 74 - 100 mg/dL [facility] BUN 11 8 - 26 mg/dL [facility] CREATININE 0.95 0.70 - 1.30 mg/dL [facility] TOTAL PROTEIN 7.4 6.0 - 8.0 g/dL [facility] ALBUMIN 3.7 3.5 - 5.0 g/dL [facility] BILIRUBIN, TOTAL 0.6 0.2 - 1.2 mg/dL [facility] AST 28 5 - 34 U/L [facility] ALT 34 0 - 55 U/L [facility] ALKALINE PHOSPHATASE 87 U/L [facility] SODIUM 135(L) 136 - 145 mmol/L [facility] POTASSIUM 3.9 3.5 - 5.1 mmol/L [facility] CHLORIDE 101 98 - 107 mmol/L [facility] CO2 29.0 22.0 - 29.0 mmol/L [facility] GFR:NON- >60 arbitrary unit [facility] GFR: >60 arbitrary unit [facility] Comment: Population mean GFR = 93 ml/min/1.73 sq.m. for ages 50-59 years. * Chronic Kidney Disease: Less than 60 ml/min/1.73 square meters End Stage Renal Disease: Less than 15 ml/min/1.73 square meters NOTE: The reported GFR estimate is calculated using the MDRD equation and is intended only for assessment of chronic kidney disease. (Note added 05-07-07.) Effective 07-04-08 the IDMS-traceable MDRD Study equation is used to calculate eGFR; creatinine is calibrated to an IDMS-traceable standard. [facility], [address] [place] [id number] 10/21/2020 2:15 PM CDT 10/21/2020 7:16 PM CDT us Nena LIMA BS HEM/CHEM/IMMUN-BLOOD Final R esult Performing Organization Address [facility] Co de Phone Number [facility] [address] [place] [phone], [place] * (ABNORMAL) LIPID PANEL (06/14/2016 11:20 AM BABBITT SPINNER) CHOLESTEROL, TOTAL 193 <200 mg/dL [facility] TRIGLYCERIDES 123 <150 mg/dL [facility] HDL CHOLESTEROL 40 40 - 59 mg/dL [facility] LDL CHOLESTEROL 128(A) <100 mg/dL [facility] Comment:[facility], [address] [place] [id number] 06/14/2016 11:2 0 AM BABBITT SPINNER 06/14/2016 3:15 PM BABBITT SPINNER Narrative [facility] - 06/14/2016 3:51 PM BABBITT SPINNER CALL TO: () Phone:. Dr. Branden Espinal CALL!Dr. Branden Espinal HOURS PATIENT WAS FASTIN Branden Espinal MD HEM/CHEM/IMMUN-BLOOD Final Re sult Performing Organization Address [facility] Co de Phone Number [facility] [address] [place] [phone] from Last 3 Months or Most Recently Relevant to Health Maintenance Insurance [address] [place] [address] [facility] Cross Blue Shield Commercial (POS, PPO, etc) Address: [address] [place] [address] [employer] [facility] Cross Blue Shield Commercial (POS, PPO, etc) Address: [address] [address] [employer] [facility] Cross Blue Shield Commercial (POS, PPO, etc) Address: [address] [place] [address] Advance Directives For more information, please contact: [phone] * Full Code (Latest Code Status on File) Date Activated Date Inactivated Comments 04/16/2012 1:38 AM 04/16/2012 1:07 PM * Full Code Date Activated Date Inactivated Comments 04/15/2012 8:36 PM 04/16/2012 1:38 AM Care Teams Zoogler Relationship Specialty Start Date End Date Avinash Otero MB BS [address] [place] [address] PCP - General Adult Medicine 09/29/23
--- OUTSIDE RECORDS SUMMARY | 2024-08-26 08:51 | XMS_ITS | Encounter Summary ---
Author Organization [facility] Address [address] [place] [address] Phone Care Team Providers Care Thermal Engineer Name Role Phone Avinash Otero BS Primary Care Provider Encounter Details Date Type Department Care Team ([facility] st Contact Info) Description 03/27/2024 Telephone [place] 1 Colon Rectal & Gastro [address] [place], [place] [phone] Otoniel Allred MD [address] [place], [place] [address] Social History Tobacco Use Types Packs/Day Years Used Date Smoking Tobacco: Never Smokeless Tobacco: Never Alcohol Use Standard Drinks/Week Comments Yes 0 (1 standard drink = 0.6 oz pur e alcohol) Sex and Gender Information Value Date Recorded Sex Assigned at Not on file Legal Sex 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 SSMENT COORDINATOR documented in this encounter Plan of Treatment Not on file documented as of this encounter Visit Diagnoses Not on filedocumented in this encounter Additional Health Concerns Assessment Noted Time A Hypertension Plan of Care has been documented for the patient 12/23/2021 9:34 AM CDT documented as of this encounter Care Teams Thermal Engineer Relationship Specialty Start Date End Date Avinash Otero MB BS [address] [place] [address] PCP - General Adult Medicine 09/29/23 documented as of this encounter
--- OUTSIDE RECORDS SUMMARY | 2024-08-26 08:51 | XMS_ITS | Encounter Summary ---
Author Organization [facility] Address [address] [place] [address] Phone Care Team Providers Care Power Brake Rebuilder Name Role Phone Avinash Otero BS Primary Care Provider [phone] Reason for Visit * Reason Onset Date Comments Refill Request 11/08/2021 Encounter Details Date Type Department Care Team (Late st Contact Info) Description 11/08/2021 Refill Adult Medicine [facility] [address] [place], [place] [id number] Salo Torres MD Refill Request Social History Tobacco Use Types Packs/Day Years Used Date Smoking Tobacco: Never Smokeless Tobacco: Never Alcohol Use Standard Drinks/Week Comments Yes 0 (1 standard drink = 0.6 oz pur e alcohol) Sex and Gender Information Value Date Recorded Sex Assigned at Not on file 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 No / Unsure 11/06/2021 12:00 PM CDT documented as of this encounter Miscellaneous Notes * Telephone Encounter - Valerie Chua - 11/09/2021 12:52 PM CDT Scheduled with Dr. Torres 12/02. * Telephone Encounter - Veronica Alejandro, JOSHUA - 11/08/2021 5:10 PM CDT Med Refill Center RN unable to refill per protocol - see below. Last visit with Dr Mcclain 09/20/20. Pt was given Rx for Indomethacin 25mg on 07/21/[address] Oswald - and then an Rx for Indomethacin 50mg on 11/06/21 ([facility] visit) Per PDMP, the 50mg dose was dispensed on 11/06/21 (7 day supply) Also noted on PDMP, 25mg, #60 for a 10 day supply was given per Dr Anguiano on 11/07/21. To Dr Torres - for review/order. To PSR - pt needs an annual visit for condition management. * Telephone Encounter - Patrica Castellano LPN - 11/08/2021 10:14 AM CDT R-Appointment and lab protocol not met for [facility] to renew 2 active scripts for this med- Patient was given same med with different dosage [facility] Ordering/Authorizing: Zari Barros, ROSIO [facility] [employer]AIN [employer] ASSEMBLER unable to renew the following prescription(s) per [facility] protocol 1000/1000A Note forwarded to Salo Torres MD's service to review/advise/authorize refill Requested Prescriptions Pending Prescriptions Disp Refills indomethacin 25 mg capsule 30 capsule 0 Sig: Take 1 capsule (25 mg total) by mouth every day as needed (pain) Analgesics: NSAIDS & COX2 Inhibitors Failed - 11/08/2021 10:05 AM Failed - Valid encounter within last 12 months Recent Visits Date Type Provider Dept 10/20/20 Office Visit Nena Mcclain MB BS [facility] 01/27/20 Office Visit Trish Linton MD [facility] Showing recent visits within past 730 days and meeting all other requirements Future Appointments Date Type Provider Dept 12/02/21 Appointment Salo Torres MD [facility] Showing future appointments within next 180 days and meeting all other requirements Failed - BMP or CMP or RFP or iSTAT 8 completed within last 12 months CALCIUM (mg/dL) Date Value 10/21/2020 8.9 GLUCOSE (mg/dL) Date Value 10/21/2020 130 (H) SODIUM (mmol/L) Date Value 10/21/2020 135 (L) POTASSIUM (mmol/L) Date Value 10/21/2020 3.9 CHLORIDE (mmol/L) Date Value 10/21/2020 101 CO2 (mmol/L) Date Value 10/21/2020 29.0 BUN (mg/dL) Date Value 10/21/2020 11 CREATININE (mg/dL) Date Value 10/21/2020 0.95 ALBUMIN (g/dL) Date Value 10/21/2020 3.7 Failed - eGFR completed within last 12 months GFR: (arbitrary unit) Date Value 10/21/2020 >60 GFR:NON- (arbitrary unit) Date Value 10/21/2020 >60 * Telephone Encounter - Dalila Calix - 11/08/2021 8:17 AM CDT Please see pt message: Thank you for the refill subscription. I will follow-up with Salo Torres for an appointment. In addition, I just ran out of indomethacin (25 mg) today and have a gout flare- up. Can you send a refill request to [facility] at [address] [place], [place] [id number]? Thanks, Cy Pt was see in convenient care 11/06/21, was given a 7 day supply Pt aware of needing appt and lab appts needed in 11/02/21 refill [facility] Specialist routing to [facility] nurse pool to address medication refill documented in this encounter Plan of Treatment Not on file documented as of this encounter Visit Diagnoses Diagnosis Acute gout involving toe of left foot, unspecified cause documented in this encounter Additional Health Concerns Assessment Noted Time A Hypertension Plan of Care has been documented for the patient 10/20/2020 1:10 PM CDT documented as of this encounter Care Teams Power Brake Rebuilder Relationship Specialty Start Date End Date Avinash Otero MB BS [address] [place] [address] PCP - General Adult Medicine 09/29/23 documented as of this encounter
--- OUTSIDE RECORDS SUMMARY | 2024-08-26 08:51 | XMS_ITS | Encounter Summary ---
Author Organization [facility] Address [address] [place] [address] Phone Care Team Providers Care Servicer Name Role Phone Avinash Otero BS Primary Care Provider [phone] Reason for Referral * - Closed Specialty Diagnoses / Procedures Referred By Contac t Referred To Contact Sleep Disorders Diagnoses Sleep apnea, unspecified type Procedures HOME SLEEP APNEA TEST Arnold Lopez MD [address] [place] [address] Phone: tel: fax: [facility] [address] [address] Phone: tel: fax: Referral ID Status Reason Start Date Expiration Date Visits Re quested Visits Authorized [id number] Closed 03/20/2023 05/18/2023 1 1 Encounter Details Date Type Department Care Team (Late st Contact Info) Description 01/11/2023 Transcribe Orders [facility] Pulmonology [address] [address] Arnold Lopez MD [address] [place] [address] Sleep apnea, unspecified type (Primary Dx) Social History Tobacco Use Types Packs/Day Years Used Date Smoking Tobacco: Never Smokeless Tobacco: Never Alcohol Use Standard Drinks/Week Comments Yes 0 (1 standard drink = 0.6 oz pur e alcohol) Sex and Gender Information Value Date Recorded Sex Assigned at Not on file Legal Sex Male 7:16 AM MANAGER 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 Gender Identity Male 11/06/2021 9:11 AM CDT Sexual Orientation Straight 11/06/2021 9: 11 AM CDT documented as of this encounter Plan of Treatment Not on file documented as of this encounter Results * HOME SLEEP APNEA TEST (04/21/2023 12:10 PM MANAGER BILLING) us Arnold Lopez MD SLEEP LAB Final Result documented in this encounter Visit Diagnoses Diagnosis Sleep apnea, unspecified type- Primary documented in this encounter Additional Health Concerns Assessment Noted Time A Hypertension Plan of Care has been documented for the patient 12/23/2021 9:34 AM CDT documented as of this encounter Care Teams Servicer Relationship Specialty Start Date End Date Avinash Otero MB BS [address] [place] [address] PCP - General Adult Medicine 09/29/23 documented as of this encounter
--- OUTSIDE RECORDS SUMMARY | 2024-08-26 08:51 | XMS_ITS | Encounter Summary ---
Author Organization [facility] Address [address] [place] [address] Phone Care Team Providers Care Book Sewer Name Role Phone Avinash Otero BS Primary Care Provider [phone] Encounter Details Date Type Department Care Team ([facility] st Contact Info) Description 10/19/2015 Transcribe Orders [facility] Level Radiology [address] [place], [place] [address] Rocco Martinez MD [address] [place], [place] [id number] Pain Social History Tobacco Use Types Packs/Day Years Used Date Smoking Tobacco: Never Smokeless Tobacco: Never Alcohol Use Standard Drinks/Week Comments Yes 0 (1 standard drink = 0.6 oz pur e alcohol) Sex and Gender Information Value Date Recorded Sex Assigned at Not on file Legal 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 Gender Identity Male 11/06/2021 9:11 AM CDT Sexual Orientation Straight 11/06/2021 9: 11 AM CDT documented as of this encounter Plan of Treatment Not on file documented as of this encounter Results * XR WRIST RIGHT OUTSIDE STUDY (10/06/2015 12:00 PM CDT) Rocco Martinez MD X-RAY (OUTSIDE STUDY) Final Result documented in this encounter Visit Diagnoses Diagnosis Pain Generalized pain documented in this encounter Additional Health Concerns Infection Onset Date Last Indicated Resolved Time Suspected COVID-19 03/01/2020 03/01/2020 0 12:21 AM AUTOMOBILE SERVICE ADVISOR Assessment Noted Time A Hypertension Plan of Care has been documented for the patient 05/11/2015 3:48 PM AUTOMOBILE SERVICE ADVISOR documented as of this encounter Care Teams Book Sewer Relationship Specialty Start Date End Date Avinash Otero MB BS [address] [place] [address] PCP - General Adult Medicine 09/29/23 documented as of this encounter
--- OUTSIDE RECORDS SUMMARY | 2024-08-26 08:51 | XMS_ITS | Encounter Summary ---
Author Organization [facility] Address [address] [place] [address] Phone Care Team Providers Care Petroleum Sampler Name Role Phone Avinash Otero BS Primary Care Provider [phone] Encounter Details Date Type Department Care Team ([facility] st Contact Info) Description 01/11/2023 Telephone [facility] Pulmonology Main [address] [place] [id number] Arnold Lopez MD [address] [place] [address] Social History Tobacco Use Types Packs/Day Years Used Date Smoking Tobacco: Never Smokeless Tobacco: Never Alcohol Use Standard Drinks/Week Comments Yes 0 (1 standard drink = 0.6 oz pur e alcohol) Sex and Gender Information Value Date Recorded Sex Assigned at Not on file Legal 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 Lopez has ordered a HSAT for this patient. Please review office visit notes from DOS 7.18.23 and approve. documented in this encounter Plan of Treatment Not on file documented as of this encounter Visit Diagnoses Not on filedocumented in this encounter Additional Health Concerns Assessment Noted Time A Hypertension Plan of Care has been documented for the patient 12/23/2021 9:34 AM CDT documented as of this encounter Care Teams Petroleum Sampler Relationship Specialty Start Date End Date Avinash Otero MB BS [address] [place] [address] PCP - General Adult Medicine 09/29/23 documented as of this encounter
--- OUTSIDE RECORDS SUMMARY | 2024-08-26 08:51 | XMS_ITS | Encounter Summary ---
Author Organization [facility] Address [address] [place] [address] Phone Care Team Providers Care Explosive Operator Fuse Name Role Phone Avinash Otero Primary Care Provider [phone] Encounter Details Date Type Department Care Team (Late st Contact Info) Description 04/19/2021 Refill Adult Medicine [facility] [address] [place] [address] Yanique Hays MD Social History Tobacco Use Types Packs/Day Years Used Date Smoking Tobacco: Never Smokeless Tobacco: Never Alcohol Use Standard Drinks/Week Comments Yes 0 (1 standard drink = 0.6 oz pur e alcohol) Sex and Gender Information Value Date Recorded Sex Assigned at Not on file Legal 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
--- OUTSIDE RECORDS SUMMARY | 2024-08-26 08:51 | XMS_ITS | Clinical Summary ---
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 Gender Identity Not on file Sexual Orientation Not on file Plan of Treatment Health Maintenance Due Date Last Done Comments Hepatitis C Virus (HCV) Screening 1966 Hepatitis B Immunization (1 of 3 - 19+ 3-dose series) 1985 Colonoscopy 2011 Colorectal Cancer Screening 2011 Cologuard 2016 Immunochemical Fecal Occult Blood 2016 Pneumococcal Immunization (5 0+ years) (1 of 1 - PCV) 2016 Zoster Immunization (1 of 2) 2016 Influenza Immunization (#1) 2023 SARS-COV-2 Immunization (2023- season) 2023 03/10/2021, 06/06/2020, 05/16/2020 Respiratory Syncytial Virus (RSV) Immunization (Adult) (1 - 1-dose 75+ series) 2041 DTaP/Tdap/Td Immunization Discontinued 08/08/2012 TdaP Immunization Completed 08/08/2012 Meningococcal Immunization (ACWY) Aged Out No longer eligible based on patient's age to complete this topic Rotavirus Immunization Aged Out No lo nger eligible based on patient's age to complete this topic Insurance [employer] on file [address] [place] [address]
--- OUTSIDE RECORDS SUMMARY | 2024-08-26 08:51 | XMS_ITS | Encounter Summary ---
Author Organization [facility] Address [address] [place] [address] Phone Care Team Providers Care Tellers Supervisor Name Role Phone Avinash Otero BS Primary Care Provider [phone] Encounter Details Date Type Department Care Team (Late st Contact Info) Description 12/06/2017 Telephone Adult Medicine [facility] [address] [place] [address] Branden Espinal MD Social History Tobacco Use Types Packs/Day Years Used Date Smoking Tobacco: Never Smokeless Tobacco: Never Alcohol Use Standard Drinks/Week Comments Yes 0 (1 standard drink = 0.6 oz pur e alcohol) Sex and Gender Information Value Date Recorded Sex Assigned at Not on file Legal 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 Gender Identity Male 11/06/2021 9:11 AM CDT Sexual Orientation Straight 11/06/2021 9: 11 AM CDT documented as of this encounter Plan of Treatment Not on file documented as of this encounter Visit Diagnoses Diagnosis Paroxysmal atrial fibrillation ([facility])- Primary Atrial fibrillation Elevated serum creatinine Other nonspecific findings on examination of blood documented in this encounter Additional Health Concerns Infection Onset Date Last Indicated Resolved Time Suspected COVID-19 03/01/2020 03/01/2020 0 12:21 AM GROUND EQUIPMENT MECHANIC Assessment Noted Time A Hypertension Plan of Care has been documented for the patient 06/07/2017 1:36 PM GROUND EQUIPMENT MECHANIC documented as of this encounter Care Teams Tellers Supervisor Relationship Specialty Start Date End Date Avinash Otero MB BS [address] [place] [address] PCP - General Adult Medicine 09/29/23 documented as of this encounter
--- NOTE | 2024-08-26 08:57 | ED.BACK ---
HPI - Back Pain/Injury General Chief Complaint: Extremity Problem,Nontraumatic Stated Complaint: Right Flank Pain/Numbness Time Seen by Provider: 08/26/24 09:03 Source: patient and RN notes reviewed Mode of arrival: ambulatory Limitations: no limitations History of Present Illness HPI Narrative: 59-year-old male presents concern for over 1 month history of numbness in his right thigh and tingling in the right foot. Reports occasionally he will have low back pain when he goes to stand from sitting after a long period of time. He denies any decreased strength, range of motion in the lower extremities. He denies perianal anesthesia, loss of bowel or bladder function. Denies abdominal pain or fever. Denies injury. He denies taking medications for his symptoms. He reports he takes indomethacin for gout which he feels helps the current problem. MD elicited complaint: back pain Related Data Home Medications Medication Instructions Recorded Confirmed Last Taken Type atenolol 25 mg tablet mg 08/26/24 Unknown History indomethacin 25 mg capsule mg 08/26/24 Unknown History Allergies Allergy/AdvReac Type Severity Reaction Status Date / Time No Known Allergies Allergy Verified 08/26/24 08:59 Review of Systems Review of Systems: CONSTITUTIONAL: Denies malaise, chills, sweats, or fever. CARDIOVASCULAR: Denies chest pain, palpitations, or edema. RESPIRATORY: Denies cough or dyspnea. GASTROINTESTINAL: Denies abdominal pain, nausea, vomiting, diarrhea, loss of bowel function GENITOURINARY: Denies dysuria, hematuria, frequency, loss of bladder function. SKIN: Denies rash or itching. MUSCULOSKELETAL: Reports intermittent right low back pain, numbness tingling in the right lower extremity NEUROLOGIC: Denies numbness, weakness, or headache. All systems reviewed & are unremarkable except as noted in HPI and below PMFSH Comments At time of signature, agree with nursing past medical, surgical, social and family history. There is no relevant family history pertinent to the presenting complaint Exam Narrative: GENERAL: Well-appearing, well-nourished, and in no acute distress. HEAD: Normocephalic, atraumatic. EYES: PERRLA and EOMI. NECK: Supple. No lymphadenopathy. CHEST: Clear to auscultation. No respiratory distress. HEART: Regular rate and rhythm. Distal pulses palpable and equal, cap refill <3 seconds ABDOMEN: Soft, nontender, nondistended, normal active bowel sounds, no palpable or pulsatile masses. No CVA tenderness MUSCULOSKELETAL: Normal range of motion and strength in all extremities; 5/5 strength with hip flexion and extension, dorsiflexion and extension, knee flexion and extension, plantar flexion and extension. Normal sensation in dermatomal distributions with sensitivity to light touch and pain. No midline back tenderness to palpation. No paraspinal tenderness. Transfers from lying to sitting to standing. SKIN: Warm, dry, no rash. No ecchymosis, erythema, open wounds to back. NEURO: No focal deficits. Alert and oriented x3. Reflexes intact. Normal gait. PSYCH: Normal mood and affect Course Course Emergency Course: Patient is aware of diagnosis, understands and agrees to treatment plan. Anticipatory guidance given. Patient agrees to follow-up as directed and is aware of reasons to seek care at the emergency department. Portions of this record may have been created with voice recognition software Level of Care: Express Care Visit Vital Signs Vital signs: Reviewed. MDM - Back Pain/Injury MDM Narrative Medical decision making narrative: I evaluated this in the express care. History is obtained from patient who is an independent historian and physical exam was performed. Available medical records were reviewed. Exam findings and relevant testing show no acute concerns or changes; patient is non-toxic appearing and is in no distress. No risk factors or findings concerning for epidural abscess, diskitis, vertebral osteomyelitis, cord compression, cauda equina, vertebral fracture or bone malignancy, AAA, or pyelonephritis. Patient instructed to consider further imaging and workup through their primary care physician as an outpatient if symptoms persist. Differential diagnosis and treatment plan were discussed with the patient. Patient agrees with discussion and after shared medical decision making agrees with plan of care. All questions were answered to the patient's satisfaction. Patient is appropriate for outpatient treatment and follow-up. Critical Care Time Critical Care Time Critical Care Time: No Discharge Plan Discharge Clinical Impression: Nonspecific low back pain Patient Disposition: Home Condition: Stable Instructions: Sciatica (ED) Additional Instructions: Please follow up with your Primary Care Doctor within 48-72 hours - call for an appointment. Walking and other gentle exercising several times a week has been shown to improve back pain; bed rest is not recommended. Take prednisone as directed, take muscle relaxers every 8 hours as needed for muscle spasm- do not drive or make any important decisions while on this medication for it can make you drowsy. You may apply ice to the low back as needed. If you experience any worsening pain, swelling, numbness, weakness please go to ER. Contact your doctor or go to the emergency department if you develop problems with bladder or bowel function, weakness or loss of feeling in one or both of your legs, or any other serious concerns. Patient Language: Hungarian Prescriptions: New cyclobenzaprine 10 mg tablet 10 mg PO TID PRN (Reason: muscle spasm) Qty: 20 0RF prednisone 20 mg tablet 40 mg PO DAILY 5 Days Qty: 10 0RF No Action atenolol 25 mg tablet indomethacin 25 mg capsule Follow-up/Referrals: UNKNOWN,DOCTOR [Primary Care Provider] - Time of Disposition: 09:14
--- OUTSIDE RECORDS SUMMARY | 2024-08-26 09:04 | XMS_ITS | Clinical Summary ---
Author Organization [facility] Address [address] [place] [address] Care Team Providers Care Assurance Associate Name Role Phone None, Provider MD Primary Care Provider Unavaila ble Allergies No known active allergies Medications No known medications Social History Tobacco Use Types Packs/Day Years Used Date Smoking Tobacco: Never Assessed Sex and Gender Information Value Date Recorded Sex Assigned at Not on file Legal Sex Male 6:49 PM CDT Gender Identity Not on file Sexual Orientation Not on file Last Filed Vital Signs Vital Sign Reading Time Taken Comments Blood Pressure 124/91 03/31/2023 4:26 PM DRUM TESTER Pulse 87 03/31/2023 4:26 PM DRUM TESTER Temperature 36.5 C (97.7 F) 03/31/2023 12:49 PM DRUM TESTER Respiratory Rate 20 03/31/2023 4:26 PM DRUM TESTER Oxygen Saturation 95% 03/31/2023 4:26 PM DRUM TESTER Inhaled Oxygen Concentration - - Weight 82.4 kg (181 lb 10.5 oz) 023 12:49 PM DRUM TESTER Height 175.3 cm (5' 9 ) 03/31/2023 12:4 9 PM DRUM TESTER Body Mass Index 26.83 03/31/2023 12:49 PM DRUM TESTER Plan of Treatment Health Maintenance Due Date Last Done Comments Colorectal Cancer Screening Colonoscopy (10 Years) 1966 Annual Physical 1969 Hepatitis C 1984 Hepatitis B Vaccines (1 of 3 - 19+ 3-dose series) 1985 Pneumococcal Vaccine: 50+ Years (1 of 1 - PCV) 2016 Zoster Vaccines (1 of 2) 2016 DTaP, Tdap and Td Vaccines ( 2 - Td or Tdap) 08/08/2022 08/08/2012 COVID-19 Vaccine (4 - 4-2 5 season) 2023 03/10/2021, 06/06/2020, 05/16/2020 Meningococcal B Vaccine Aged Out No l onger eligible based on patient's age to complete this topic Meningococcal Vaccine Aged Out No yamilka tyrese eligible based on patient's age to complete this topic RSV Immunizations Under 20 Months Aged Out No longer eligible b ased on patient's age to complete this topic Insurance [id number] Care Teams Assurance Associate Relationship Specialty Start Date End Date None, Provider, PCP - General UNKNOWN PHYSICIAN SPECIALTY 09/18/22
--- OUTSIDE RECORDS SUMMARY | 2024-08-26 09:05 | XMS_ITS | Clinical Summary ---
Author Organization [facility] Address [address] [place] [address] Care Team Providers Care Silver Brazer Name Role Phone Walter Anguiano MD Primary Care Provider [phone]- [phone] Social History Tobacco Use Types Packs/Day Years Used Date Smoking Tobacco: Never Assessed Personal Safety Answer Date Recorded Getting School Help Needed Not on file 06/24 Sex and Gender Information Value Date Recorded Sex Assigned at Not on file Legal Sex Male 3:49 PM CDT Gender Identity Not on file Sexual Orientation Not on file Plan of Treatment Health Maintenance Due Date Last Done Comments Colon Cancer Screening-Colonoscopy 1966 Depression Screening 1966 Hepatitis C Screening 1966 Prostate Cancer Screening-PSA 1966 Hepatitis B Screening 1984 Regular Well Visit/Exam 18-64 1984 Zoster Vaccine (1 of 2) 2016 DTaP/Tdap/Td Vaccine (2 - Td or Tdap) 08/08/2022 08/08/2012 Covid-19 Vaccine ( - 2023-2 5 season) 2023 03/10/2021, 06/06/2020, 05/16/2020 Influenza Vaccine (#1) 2023 Pneumococcal vaccine <65 Aged Out No longer eligible based on patient's age to complete this topic Insurance [address] [place] [address] [employer] [address] [place] [address] [employer] Care Teams Silver Brazer Relationship Specialty Start Date End Date Walter Anguiano MD [address] [place] [address] PCP - General Family Medicine 01/11/23
--- OUTSIDE RECORDS SUMMARY | 2024-08-26 09:05 | XMS_ITS | Referral Summary ---
Author Organization [facility] Address [address] [place] [address] Care Team Providers Care Balance Assembler Name Role Phone Walter Anguiano MD Primary Care Provider [phone]- [phone] Social History Tobacco Use Types Packs/Day Years Used Date Smoking Tobacco: Never Assessed Personal Safety Answer Date Recorded Getting School Help Needed Not on file 06/24 Sex and Gender Information Value Date Recorded Sex Assigned at Not on file Legal Sex Male 3:49 PM CDT Gender Identity Not on file Sexual Orientation Not on file Plan of Treatment [place] [address] [employer] [place] [address] [employer] Care Teams Balance Assembler Relationship Specialty Start Date End Date Walter Anguiano MD [address] [place] [address] PCP - General Family Medicine 01/11/23
== END 2024-08-26 09:19 | disposition home or self-care (01) ==
PROVIDERS: Emergency Provider Nurse Practitioner
DX: M54.50 Low back pain, unspecified (principal); I48.91 Unspecified atrial fibrillation
CPT/HCPCS: 99213; G0463